=== PATIENT | female | born 1950 | race Caucasian/White ===

== ENCOUNTER → 2017-04-06 | Outpatient (CLI) | payer MEDICARE ==
[~2017-04-06] MED LIST: AMITRIPTYLINE50 MG PO; ANAPROX DS550 MG PO; AUGMENTIN 875 M1 TAB PO; BACTRIM DS 8001 TA1 PO; BACTROBAN CREAM15 GM PO; BENADRYL ALLERG25 M5 PO; BENADRYL25 M1 PO; CELEXA20 MG PO; CIPRO500 MG PO; CIPROFLOXACIN500 MG PO; DARVOCET N 1001 TAB PO; DAYPRO600 M1 PO; DEPAKOTE500 MG PO; DIFLUCAN150 MG PO; FLEXERIL10 MG PO; FLUOXETINE20 M1 PO; GUAFENESIN; HYDROCODONE BIT1 T11 PO; HYDROXYYZINE PA25 MG PO; IBU-TAB800 MG PO; LEVOFLOXACIN500 MG PO; LEVOTHYROXINE0.05 MG PO; LYRICA50 MG PO; MOTRIN600 MG PO; MOTRIN800 MG PO; NAPROSYN500 MG; NEURONTIN300 MG PO; NEURONTIN600 MG PO; NORCO 10-325 T1 EACH PO; PREDNISONE20 M1 PO; PREDNISONE20 MG PO; PRILOSEC10 MG PO; PROZAC20 MG PO; PYRIDIUM200 M1 PO; REQUIP0.5 MG PO; ROBAXIN500 MG PO; ROBAXIN750 MG PO; TRAMADOL HCL50 MG PO; TRAZADONE HYDR100 MG PO; TYLENOL325 M1 PO; ULTRAM50 MG PO; VALIUM10 MG PO; VALIUM2 MG PO; VICODIN 5/500 505 MG PO; VICODIN ES 7501 TA1 PO; VOLTAREN75 MG PO; XANAX0.25 MG PO; XANAX1 MG PO; Zofran4 MG PO; [UNRECOGNIZED DRUG - CODE]; [UNRECOGNIZED DRUG - OTHER]
== END | disposition home or self-care (01) ==
LOC: US 03:19
DX: K76.0 Fatty (change of) liver, not elsewhere classified (principal); R10.11 Right upper quadrant pain

== ENCOUNTER 2018-05-24 22:16 | Emergency (ER) | payer MEDICARE ==
[~2018-05-24] VITALS: Ht 167.6 cm; Wt 77.1 kg
[2018-06-01] MEDS ORDERED: CEPHALEXIN500 M1 PO (18:47)
[2018-06-01] MEDS ORDERED: NAPROSYN500 MG PO (19:10)
== END 2018-05-25 00:31 | disposition home or self-care (01) ==
LOC: ED 22:16
DX: S30.0XXA Contusion of lower back and pelvis, initial encounter (principal); Z88.1 Allergy status to other antibiotic agents; Z79.899 Other long term (current) drug therapy; W18.30XA Fall on same level, unspecified, initial encounter; Y93.89 Activity, other specified; Y92.89 Other specified places as the place of occurrence of the external cause; Y99.8 Other external cause status

== ENCOUNTER 2018-12-14 05:06 | Emergency (ER) | payer MEDICARE ==
[~2018-12-14] VITALS: Ht 167.6 cm; Wt 79.4 kg
[~2018-12-14 05:06] MED LIST changes: +CEPHALEXIN500 M1 PO; +NAPROSYN500 MG PO
[2018-12-14] MEDS ORDERED: CYCLOBENZAPRINE10 MG PO (05:54)
[2018-12-14] MEDS ORDERED: IBU800 MG PO (05:54)
== END 2018-12-14 06:25 | disposition home or self-care (01) ==
LOC: ED 05:06
DX: S40.012A Contusion of left shoulder, initial encounter (principal); M21.371 Foot drop, right foot; Z88.1 Allergy status to other antibiotic agents; Z79.899 Other long term (current) drug therapy; W18.09XA Striking against other object with subsequent fall, initial encounter; Y93.01 Activity, walking, marching and hiking; Y92.098 Other place in other non-institutional residence as the place of occurrence of the external cause; Y99.8 Other external cause status

== ENCOUNTER 2019-08-08 10:50 | Emergency (ER) | payer MEDICARE ==
[~2019-08-08] VITALS: Ht 170.1 cm; Wt 72.6 kg
[~2019-08-08 10:50] MED LIST changes: +CYCLOBENZAPRINE10 MG PO; +IBU800 MG PO
== END 2019-08-08 13:40 | disposition home or self-care (01) ==
LOC: ED 10:50
DX: M79.604 Pain in right leg (principal); Z88.1 Allergy status to other antibiotic agents; Z79.899 Other long term (current) drug therapy; W19.XXXA Unspecified fall, initial encounter; Y93.89 Activity, other specified; Y92.098 Other place in other non-institutional residence as the place of occurrence of the external cause; Y99.8 Other external cause status

== ENCOUNTER → 2019-11-03 | Outpatient (CLI) | payer MEDICARE ==
[2019-11-03 16:56] LABS: CREATININE 1.15 mg/dL (0.55-1.02); POTASSIUM 4.9 mmol/L (3.5-5.1)
[2019-11-03 17:08] LABS: FREE T4 0.72 ng/dl (0.76-1.46); THYROID STIM HORMONE (HS) 0.259 uIU/ml (0.358-4.75); TOTAL PROTEIN 7.7 gm/dL (6.4-8.2)
== END | disposition home or self-care (01) ==
LOC: LAB 15:09
PROVIDERS: Internal Medicine
DX: I10 Essential (primary) hypertension (principal); R53.83 Other fatigue

== ENCOUNTER 2019-11-17 19:23 | Emergency (ER) | payer MEDICARE ==
[~2019-11-17] VITALS: Ht 167.6 cm; Wt 70.3 kg
== END 2019-11-17 21:47 | disposition home or self-care (01) ==
LOC: ED 19:23
DX: S92.354A Nondisplaced fracture of fifth metatarsal bone, right foot, initial encounter for closed fracture (principal); I10 Essential (primary) hypertension; Z88.1 Allergy status to other antibiotic agents; Z79.899 Other long term (current) drug therapy; W01.0XXA Fall on same level from slipping, tripping and stumbling without subsequent striking against object, initial encounter; Y93.89 Activity, other specified; Y92.89 Other specified places as the place of occurrence of the external cause; Y99.8 Other external cause status

== ENCOUNTER 2020-12-31 19:31 | Emergency (ER) | payer OTHER ==
[~2020-12-31] VITALS: Ht 170.1 cm; Wt 74.8 kg
[2020-12-31] MEDS ORDERED: ROBAXIN-750750 MG PO (20:29)
[2020-12-31] MEDS ORDERED: NAPROXEN250 MG PO (20:29)
== END 2020-12-31 20:34 | disposition home or self-care (01) ==
LOC: ED 19:31
DX: M25.512 Pain in left shoulder (principal); I10 Essential (primary) hypertension; Z88.8 Allergy status to other drugs, medicaments and biological substances; Z79.899 Other long term (current) drug therapy; Z98.890 Other specified postprocedural states

== ENCOUNTER → 2022-05-19 | Outpatient (CLI) | payer OTHER ==
[~2022-05-19] MED LIST changes: +NAPROXEN250 MG PO; +ROBAXIN-750750 MG PO
== END | disposition home or self-care (01) ==
LOC: RAD 10:58
PROVIDERS: ATTEND Internal Medicine Nephrology
DX: R05.1 Acute cough (principal)

== ENCOUNTER 2022-06-02 11:27 | Emergency (ER) | payer OTHER ==
[~2022-06-02] VITALS: Wt 75.3 kg
[2022-06-02 12:22] LABS: BASO # 0.1 10*3/uL (0.0-0.1); BASO % 0.5 % (0.0-1.0); EOS # 0.5 10*3/uL (0.0-0.4); EOS % 3.9 % (1.0-4.0); HEMATOCRIT 35.7 % (37.0-47.0); LYMPH # 3.9 10*3/uL (1.3-4.4); LYMPH % 30.5 % (27.0-41.0); MEAN CORPUSCULAR HGB 27.3 pg (27.0-31.0); MEAN CORPUSCULAR HGB CONC 32.5 g/dl (33.0-37.0); MEAN PLATELET VOLUME 10.6 fl (9.6-12.3); MONO # 1.1 10*3/uL (0.1-1.0); MONO % 8.4 % (3.0-9.0); NEUT # 7.3 10*3/uL (2.3-7.9); NEUT % 56.5 % (47.0-73.0); PLATELET COUNT AUTOMATED 346 10*3/uL (130-400); RED BLOOD COUNT 4.25 10*6/uL (4.10-5.10); RED CELL DISTRI WIDTH 13.3 % (0-14.5); WHITE BLOOD COUNT 12.9 10*3/uL (4.8-10.8)
[2022-06-02 12:36] LABS: ALKALINE PHOSPHATASE 111 U/L (45-117); BUN 15 mg/dl (7-24); CHLORIDE 107 mmol/L (98-107); SGOT/AST 18 IU/L (3-35); SGPT/ALT 25 U/L (12-78); SODIUM 140 mmol/L (136-145); TOTAL PROTEIN 7.9 gm/dL (6.4-8.2)
[2022-06-02] MEDS ORDERED: ZITHROMAX250 MG PO (14:40)
== END 2022-06-02 14:47 | disposition left against medical advice (07) ==
LOC: ED 11:27
PROVIDERS: Physician Assistant
DX: A41.9 Sepsis, unspecified organism (principal); J18.9 Pneumonia, unspecified organism; R00.0 Tachycardia, unspecified; Z88.1 Allergy status to other antibiotic agents; Z79.899 Other long term (current) drug therapy; Z53.29 Procedure and treatment not carried out because of patient's decision for other reasons

== ENCOUNTER 2022-06-08 06:54 | Emergency (ER) | payer OTHER ==
[~2022-06-08 06:54] MED LIST changes: +ZITHROMAX250 MG PO
[2022-06-08 07:12] LABS: BASO # 0.1 10*3/uL (0.0-0.1); BASO % 0.6 % (0.0-1.0); EOS # 0.5 10*3/uL (0.0-0.4); EOS % 4.2 % (1.0-4.0); HEMATOCRIT 34.5 % (37.0-47.0); LYMPH # 2.9 10*3/uL (1.3-4.4); LYMPH % 26.7 % (27.0-41.0); MEAN CELL VOLUME 83.3 fl (81.0-99.0); MEAN CORPUSCULAR HGB 27.1 pg (27.0-31.0); MEAN CORPUSCULAR HGB CONC 32.5 g/dl (33.0-37.0); MEAN PLATELET VOLUME 10.8 fl (9.6-12.3); MONO # 0.7 10*3/uL (0.1-1.0); MONO % 6.4 % (3.0-9.0); NEUT # 6.7 10*3/uL (2.3-7.9); NEUT % 61.8 % (47.0-73.0); PLATELET COUNT AUTOMATED 383 10*3/uL (130-400); RED BLOOD COUNT 4.14 10*6/uL (4.10-5.10); RED CELL DISTRI WIDTH 13.1 % (0-14.5); WHITE BLOOD COUNT 10.8 10*3/uL (4.8-10.8)
[2022-06-08 07:25] LABS: ACT PARTIAL THROMBO TIME 30.5 SECONDS (20.0-32.1)
[2022-06-08 07:34] LABS: ALKALINE PHOSPHATASE 132 U/L (45-117); BUN 13 mg/dl (7-24); CHLORIDE 107 mmol/L (98-107); CREATININE 0.87 mg/dL (0.55-1.02); POTASSIUM 4.1 mmol/L (3.5-5.1); SGOT/AST 29 IU/L (3-35); SGPT/ALT 36 U/L (12-78); SODIUM 138 mmol/L (136-145); TOTAL PROTEIN 7.9 gm/dL (6.4-8.2)
== END 2022-06-08 11:18 | disposition home or self-care (01) ==
LOC: ED 06:54
PROVIDERS: Emergency Medicine
DX: Z13.89 Encounter for screening for other disorder (principal); Z20.822 Contact with and (suspected) exposure to COVID-19; Z79.899 Other long term (current) drug therapy; Z88.1 Allergy status to other antibiotic agents

== ENCOUNTER 2022-06-12 11:53 | Emergency (ER) | payer OTHER ==
[2022-06-12 13:45] LABS: BASO # 0.1 10*3/uL (0.0-0.1); BASO % 0.7 % (0.0-1.0); EOS # 0.3 10*3/uL (0.0-0.4); EOS % 2.3 % (1.0-4.0); HEMATOCRIT 37.1 % (37.0-47.0); LYMPH # 4.5 10*3/uL (1.3-4.4); LYMPH % 37.8 % (27.0-41.0); MEAN CELL VOLUME 85.7 fl (81.0-99.0); MEAN CORPUSCULAR HGB 26.8 pg (27.0-31.0); MEAN CORPUSCULAR HGB CONC 31.3 g/dl (33.0-37.0); MEAN PLATELET VOLUME 10.8 fl (9.6-12.3); MONO # 0.9 10*3/uL (0.1-1.0); MONO % 7.4 % (3.0-9.0); NEUT # 6.1 10*3/uL (2.3-7.9); NEUT % 51.5 % (47.0-73.0); PLATELET COUNT AUTOMATED 388 10*3/uL (130-400); RED BLOOD COUNT 4.33 10*6/uL (4.10-5.10); WHITE BLOOD COUNT 11.8 10*3/uL (4.8-10.8)
[2022-06-12 14:10] LABS: ALKALINE PHOSPHATASE 113 U/L (45-117); BUN 17 mg/dl (7-24); CHLORIDE 109 mmol/L (98-107); CREATININE 0.83 mg/dL (0.55-1.02); POTASSIUM 3.9 mmol/L (3.5-5.1); SGOT/AST 29 IU/L (3-35); SGPT/ALT 35 U/L (12-78); SODIUM 141 mmol/L (136-145); TOTAL PROTEIN 8.1 gm/dL (6.4-8.2)
[2022-06-12 15:00] LABS: BILIRUBIN Negative (Negative); BLOOD Negative (Negative); CLARITY Clear (Clear); COLOR Yellow (Yellow); GLUCOSE Negative (Negative); KETONE Trace (Negative); LEUKO ESTERASE Negative (Negative); NITRITE Negative (Negative); SPECIFIC GRAVITY >= 1.030 (1.001-1.030); UROBILINOGEN 0.2 E.U./dl (0.0-1.0)
[2022-06-12 15:08] LABS: URINE AMPHETAMINES < 1000 (1000ng/ml); URINE BARBITURATES < 200 (200ng/ml); URINE BENZODIAZEPINES > 200 (200ng/ml); URINE CANNABINOIDS (THC) < 50 (50ng/ml); URINE COCAINE < 300 (300ng/ml); URINE METHADONE < 300 (300ng/ml); URINE OPIATES > 300 (300ng/ml)
[2022-06-12 15:09] LABS: BACTERIA 1+; CALCIUM OXALATE CRYSTALS 1+
[2022-06-12 15:10] LABS: HYALINE CAST 0-2; URINE PHENCYCLIDINE < 25 (25ng/ml)
== END 2022-06-12 15:23 | disposition home or self-care (01) ==
LOC: ED 11:53
PROVIDERS: Nurse Practitioner Family
DX: B34.9 Viral infection, unspecified (principal); Z20.822 Contact with and (suspected) exposure to COVID-19; Z88.1 Allergy status to other antibiotic agents; Z79.899 Other long term (current) drug therapy

== ENCOUNTER 2022-06-21 07:55 | Inpatient (IN) | payer OTHER ==
[~2022-06-21] VITALS: Ht 170.1 cm; Wt 70.3 kg
[~2022-06-21 07:55] MED LIST changes: -PRILOSEC10 MG PO; +PRILOSEC20 M1 PO
[2022-06-21 08:06] VITALS: BP 161/90
[2022-06-21 08:49] LABS: BASO # 0.1 10*3/uL (0.0-0.1); BASO % 0.4 % (0.0-1.0); EOS # 0.2 10*3/uL (0.0-0.4); EOS % 1.7 % (1.0-4.0); HEMATOCRIT 39.7 % (37.0-47.0); LYMPH # 1.7 10*3/uL (1.3-4.4); LYMPH % 13.4 % (27.0-41.0); MEAN CELL VOLUME 84.8 fl (81.0-99.0); MEAN CORPUSCULAR HGB 26.9 pg (27.0-31.0); MEAN CORPUSCULAR HGB CONC 31.7 g/dl (33.0-37.0); MEAN PLATELET VOLUME 11.4 fl (9.6-12.3); MONO # 0.8 10*3/uL (0.1-1.0); MONO % 6.1 % (3.0-9.0); NEUT # 9.9 10*3/uL (2.3-7.9); NEUT % 78.2 % (47.0-73.0); PLATELET COUNT AUTOMATED 341 10*3/uL (130-400); RED BLOOD COUNT 4.68 10*6/uL (4.10-5.10); RED CELL DISTRI WIDTH 13.2 % (0-14.5); WHITE BLOOD COUNT 12.6 10*3/uL (4.8-10.8)
[2022-06-21 09:00] LABS: ACT PARTIAL THROMBO TIME 30.2 SECONDS (20.0-32.1)
[2022-06-21 09:05] LABS: ALKALINE PHOSPHATASE 106 U/L (45-117); BUN 13 mg/dl (7-24); CHLORIDE 109 mmol/L (98-107); CPK 122 U/L (26-192); CREATININE 0.89 mg/dL (0.55-1.02); POTASSIUM 3.8 mmol/L (3.5-5.1); SGOT/AST 23 IU/L (3-35); SGPT/ALT 27 U/L (12-78); SODIUM 142 mmol/L (136-145); TOTAL PROTEIN 8.2 gm/dL (6.4-8.2)
[2022-06-21 09:36] LABS: BILIRUBIN Negative (Negative); BLOOD Negative (Negative); CLARITY Clear (Clear); COLOR Yellow (Yellow); GLUCOSE Negative (Negative); KETONE Negative (Negative); LEUKO ESTERASE Trace (Negative); NITRITE Negative (Negative); UROBILINOGEN 0.2 E.U./dl (0.0-1.0)
[2022-06-21 09:45] LABS: URINE AMPHETAMINES < 1000 (1000ng/ml); URINE BARBITURATES < 200 (200ng/ml); URINE BENZODIAZEPINES > 200 (200ng/ml); URINE CANNABINOIDS (THC) < 50 (50ng/ml); URINE COCAINE < 300 (300ng/ml); URINE METHADONE < 300 (300ng/ml); URINE OPIATES > 300 (300ng/ml)
[2022-06-21 09:50] LABS: URINE PHENCYCLIDINE < 25 (25ng/ml)
[2022-06-21 09:57] LABS: BACTERIA TRACE; WBC 0-2 wbc/hpf (0-5)
[2022-06-21 10:20] LABS: ACETAMINOPHEN (TYLENOL) < 5.0 ug/ml (10-30); ETHYL ALCOHOL < 3.0 mg/dl (<3)
[2022-06-21 13:17] VITALS: BP 162/120
[2022-06-21 13:55] VITALS: BP 147/67
[2022-06-21 17:30] VITALS: BP 136/72; BP 147/67
[2022-06-21] MEDS ORDERED: NORTRIPTYLINE H50 MG PO (17:57)
[2022-06-21] MEDS ORDERED: LISINOPRIL40 MG PO (17:59)
[2022-06-21 20:00] VITALS: BP 171/90
[2022-06-22] VITALS: BP 133/86
[2022-06-22 06:28] LABS: BASO % 0.3 % (0.0-1.0); EOS # 0.1 10*3/uL (0.0-0.4); EOS % 0.9 % (1.0-4.0); HEMATOCRIT 38.4 % (37.0-47.0); LYMPH # 3.2 10*3/uL (1.3-4.4); LYMPH % 22.4 % (27.0-41.0); MEAN CELL VOLUME 82.8 fl (81.0-99.0); MEAN CORPUSCULAR HGB 26.9 pg (27.0-31.0); MEAN CORPUSCULAR HGB CONC 32.6 g/dl (33.0-37.0); MEAN PLATELET VOLUME 11.9 fl (9.6-12.3); MONO # 1.1 10*3/uL (0.1-1.0); MONO % 7.7 % (3.0-9.0); NEUT # 9.8 10*3/uL (2.3-7.9); NEUT % 68.4 % (47.0-73.0); PLATELET COUNT AUTOMATED 385 10*3/uL (130-400); RED BLOOD COUNT 4.64 10*6/uL (4.10-5.10); RED CELL DISTRI WIDTH 13.2 % (0-14.5); WHITE BLOOD COUNT 14.3 10*3/uL (4.8-10.8)
[2022-06-22 06:30] LABS: BUN 14 mg/dl (7-24); CHLORIDE 111 mmol/L (98-107); CREATININE 0.72 mg/dL (0.55-1.02); POTASSIUM 3.7 mmol/L (3.5-5.1); SODIUM 142 mmol/L (136-145)
[2022-06-22 08:00] VITALS: BP 134/93
[2022-06-22 12:00] VITALS: BP 134/93
[2022-06-22 16:00] VITALS: BP 135/84
[2022-06-22 20:00] VITALS: BP 136/88
[2022-06-23 08:00] VITALS: BP 130/90
[2022-06-23 12:00] VITALS: BP 144/84
[2022-06-23 16:00] VITALS: BP 111/77
[2022-06-23 20:00] VITALS: BP 122/76
[2022-06-24] VITALS: BP 136/86
[2022-06-24 05:28] LABS: CHLORIDE 112 mmol/L (98-107); CREATININE 0.99 mg/dL (0.55-1.02); POTASSIUM 3.9 mmol/L (3.5-5.1); SODIUM 142 mmol/L (136-145)
[2022-06-24 05:31] LABS: BUN 24 mg/dl (7-24)
[2022-06-24 06:43] LABS: BASO # 0.1 10*3/uL (0.0-0.1); BASO % 0.5 % (0.0-1.0); EOS # 0.3 10*3/uL (0.0-0.4); EOS % 2.8 % (1.0-4.0); HEMATOCRIT 38.7 % (37.0-47.0); LYMPH % 33.9 % (27.0-41.0); MEAN CELL VOLUME 84.9 fl (81.0-99.0); MEAN CORPUSCULAR HGB 26.8 pg (27.0-31.0); MEAN CORPUSCULAR HGB CONC 31.5 g/dl (33.0-37.0); MEAN PLATELET VOLUME 11.9 fl (9.6-12.3); MONO # 0.9 10*3/uL (0.1-1.0); MONO % 7.3 % (3.0-9.0); NEUT # 6.6 10*3/uL (2.3-7.9); NEUT % 55.2 % (47.0-73.0); PLATELET COUNT AUTOMATED 382 10*3/uL (130-400); RED BLOOD COUNT 4.56 10*6/uL (4.10-5.10); RED CELL DISTRI WIDTH 13.4 % (0-14.5); WHITE BLOOD COUNT 11.9 10*3/uL (4.8-10.8)
[2022-06-24 08:00] VITALS: BP 127/85
[2022-06-24] MEDS ORDERED: VIBRA-TAB100 MG PO (10:40)
[2022-06-24] MEDS ORDERED: AUGMENTIN XR 11 EACH PO (10:46)
[2022-06-24] MEDS ORDERED: ATORVASTATIN CA20 M1 PO (10:49)
[2022-06-24 12:00] VITALS: BP 116/76
== END 2022-06-24 13:15 | DRG 917 ==
LOC: ED 07:55 → 4E 09:59 → EDHOLD 09:59 → 4E 16:01
PROVIDERS: Emergency Medicine; ADMIT Internal Medicine; ATTEND Internal Medicine
DX: T42.4X1A Poisoning by benzodiazepines, accidental (unintentional), initial encounter (principal); A41.9 Sepsis, unspecified organism; J69.0 Pneumonitis due to inhalation of food and vomit; G93.40 Encephalopathy, unspecified; D72.810 Lymphocytopenia; G89.29 Other chronic pain; M54.50 Low back pain, unspecified; F41.1 Generalized anxiety disorder; F32.9 Major depressive disorder, single episode, unspecified; Z83.3 Family history of diabetes mellitus; Y92.89 Other specified places as the place of occurrence of the external cause

== ENCOUNTER 2022-06-24 13:03 | Inpatient (IN) | payer OTHER ==
[~2022-06-24] VITALS: Ht 167.6 cm; Wt 63.5 kg
[~2022-06-24 13:03] MED LIST changes: +ATORVASTATIN CA20 M1 PO; +AUGMENTIN XR 11 EACH PO; +LISINOPRIL40 MG PO; +NORTRIPTYLINE H50 MG PO; +VIBRA-TAB100 MG PO
[2022-06-24 14:00] VITALS: BP 112/61
[2022-06-24 20:00] VITALS: BP 131/72
[2022-06-25 06:18] LABS: BASO % 0.3 % (0.0-1.0); EOS # 0.3 10*3/uL (0.0-0.4); EOS % 2.8 % (1.0-4.0); HEMATOCRIT 37.7 % (37.0-47.0); LYMPH # 3.3 10*3/uL (1.3-4.4); LYMPH % 29.6 % (27.0-41.0); MEAN CELL VOLUME 85.5 fl (81.0-99.0); MEAN CORPUSCULAR HGB CONC 31.6 g/dl (33.0-37.0); MEAN PLATELET VOLUME 11.7 fl (9.6-12.3); MONO # 0.9 10*3/uL (0.1-1.0); MONO % 8.5 % (3.0-9.0); NEUT # 6.5 10*3/uL (2.3-7.9); NEUT % 58.5 % (47.0-73.0); PLATELET COUNT AUTOMATED 365 10*3/uL (130-400); RED BLOOD COUNT 4.41 10*6/uL (4.10-5.10); RED CELL DISTRI WIDTH 13.3 % (0-14.5)
[2022-06-25 06:25] LABS: ALKALINE PHOSPHATASE 104 U/L (45-117); BUN 31 mg/dl (7-24); CHLORIDE 112 mmol/L (98-107); CHOLESTEROL 246 mg/dL (<200); CREATININE 1.06 mg/dL (0.55-1.02); LDL CHOLESTEROL 167 mg/dL (9-159); POTASSIUM 3.9 mmol/L (3.5-5.1); SGOT/AST 23 IU/L (3-35); SGPT/ALT 29 U/L (12-78); SODIUM 142 mmol/L (136-145); TOTAL PROTEIN 7.9 gm/dL (6.4-8.2); TRIGLYCERIDES 198 mg/dl (<150)
[2022-06-25 06:32] LABS: THYROID STIM HORMONE (HS) 0.081 uIU/ml (0.358-4.75)
[2022-06-25 07:54] VITALS: BP 111/66
[2022-06-25 08:19] LABS: VITAMIN D, 25-HYDROXY 17.1 ng/mL (30-100)
[2022-06-25 18:37] LABS: BILIRUBIN Negative (Negative); BLOOD Negative (Negative); CLARITY Cloudy (Clear); COLOR Yellow (Yellow); GLUCOSE Negative (Negative); KETONE 1+ (Negative); LEUKO ESTERASE 1+ (Negative); NITRITE Negative (Negative); SPECIFIC GRAVITY >= 1.030 (1.001-1.030); UROBILINOGEN 0.2 E.U./dl (0.0-1.0)
[2022-06-25 18:43] LABS: BACTERIA 3+; EPITHELIAL CELLS TNTC; YEAST 4+
[2022-06-25 19:52] VITALS: BP 127/68
[2022-06-26 06:58] VITALS: BP 148/84
[2022-06-26] MEDS ORDERED: NORTRIPTYLINE H50 M1 PO (09:39)
[2022-06-26] MEDS ORDERED: VITAMIN D3125 MC1 PO (09:39)
[2022-06-26] MEDS ORDERED: HYDROXYZINE HCL25 MG PO (09:39)
== END 2022-06-26 11:32 | disposition home or self-care (01) | DRG 885 ==
LOC: 3N 13:03
PROVIDERS: Counselor Professional; ADMIT Psychiatry & Neurology Psychiatry; ATTEND Psychiatry & Neurology Psychiatry
DX: F33.9 Major depressive disorder, recurrent, unspecified (principal); A41.9 Sepsis, unspecified organism; J69.0 Pneumonitis due to inhalation of food and vomit; N39.0 Urinary tract infection, site not specified; G89.29 Other chronic pain; M54.50 Low back pain, unspecified; Z20.822 Contact with and (suspected) exposure to COVID-19; F41.1 Generalized anxiety disorder; K21.9 Gastro-esophageal reflux disease without esophagitis; I10 Essential (primary) hypertension; Z79.899 Other long term (current) drug therapy

== ENCOUNTER → 2022-07-06 | Outpatient (CLI) | payer OTHER ==
[~2022-07-06] MED LIST changes: +HYDROXYZINE HCL25 MG PO; +NORTRIPTYLINE H50 M1 PO; +VITAMIN D3125 MC1 PO
== END | disposition home or self-care (01) ==
LOC: RAD 15:12
PROVIDERS: ATTEND Internal Medicine
DX: M25.511 Pain in right shoulder (principal)

== ENCOUNTER → 2023-07-01 | Outpatient (CLI) | payer OTHER ==
[~2023-07-01] MED LIST changes: +LIPITOR40 MG PO; +NEURONTIN800 MG PO; +OMEPRAZOLE40 MG PO; +ST. JOSEPH ASPI81 MG PO; +TRAZODONE50 MG PO; +VENLAFAXINE37.5 M1 PO
== END | disposition home or self-care (01) ==
LOC: CT 15:00
PROVIDERS: ATTEND Student in an Organized Health Care Education/Training Program
DX: R93.89 Abnormal findings on diagnostic imaging of other specified body structures (principal); I25.10 Atherosclerotic heart disease of native coronary artery without angina pectoris